=== PATIENT | male | born 1960 | race Caucasian/White ===

== ENCOUNTER 2016-10-09 11:36 | Day surgery (SDC) | payer BC ==
--- NOTE | ~2016-10-09 | EGD ---
EGD REPORT [facility] [address] [address] NAME: ALFONZO HARP : 62 STATUS : REG [facility]#: [id number] AGE: 56 ADM/REG DATE : 10/09/16 MR#: [id number] REPORT SERV DATE: 10/09/16 DICTATED BY: BENNY SILVERMAN DATE: 10/09/16 REPORT STATUS : Draft TRANSCRIBED BY: [facility] DATE: 10/09/16 Endoscopy Center Patient Name: Alfonzo Harp Date of : 1960 Attending MD: BENNY SILVERMAN MD Procedure Date No Time: 10/09/2016 Procedure: Upper GI endoscopy Indications: Reynaga's esophagus Medicines: Propofol total dose 595 mg IV Complications: No immediate complications. Procedure: Pre-Anesthesia Assessment: - ASA Grade Assessment: II - A patient with mild systemic disease. After obtaining informed consent, the endoscope was passed under direct vision. Throughout the procedure, the patient's blood pressure, pulse, and oxygen saturations were monitored continuously. The GIF H190 [id number] was introduced through the mouth, and advanced to the second part of duodenum. The upper GI endoscopy was accomplished without difficulty. The patient tolerated the procedure well. Findings: The duodenal bulb and 2nd part of the duodenum were normal. Circumferential radiofrequency ablation of Reynaga's esophagus was performed, using the Halo 360 catheter and balloon-based endoscopic ablation system. With the endoscope in place, the position and extent of the Reynaga's mucosa and the anatomic landmarks from 35 to 28 cms were noted. irrigation Reynaga's Mucosa.with mucomyst Contents suctioned out from the stomach . A guidewire was passed down the biopsy channel of the endoscope and the endoscope was then withdrawn from the mouth leaving the guidewire in place. The shaft of a 33.7 mm sizing balloon catheter was passed transorally over the guidewire into the esophagus and positioned at 28 cms. The balloon was automatically inflated with the energy generator and the inner diameter measurement of the esophagus first sizing Measurement (mm)] was obtained. This measurement step was repeated in 4 cms moving distally 38 cmsThen pu the the guidewire into the esophagus. The endoscope was introduced in a [id number] manner with the ablation catheter. The balloon ablation catheter was positioned under direct visualization so that the proximal edge of the electrode was 1 cms above the reynaga's mucosa. The balloon was automatically inflated and energy was applied . The balloon electrode was moved 3 cm distally, so that the proximal edge of the electrode was aligned with the distal edge of the ablation zone. The process of balloon inflation and ablation was repeated until the top of the gastric folds was EGD REPORT [address] [place]. [address] NAME: LOYD,ALVIN TRUONG : 62 STATUS : REG [facility] [place] PAT#: [id number] AGE: 56 ADM/REG DATE : 10/09/16 MR#: [id number] REPORT SERV DATE: 10/09/16 DICTATED BY: BENNY SILVERMAN DATE: 10/09/16 REPORT STATUS : Draft TRANSCRIBED BY: [employer] DATE: 10/09/16 reached. The ablation catheter and guidewire were removed and the balloon was cleaned. The ablation zone was then cleaned of overlying coagulative debris using irrigation and suction via the endoscope and a cleaning cap. The guidewire was reinserted and then the ablation catheter was reintroduced into the esophagus over the wire. The ablation catheter was positioned under direct visualization so that the proximal edge of the electrode was at the proximal edge of the ablation zone. Reinflation and a second round of ablation was performed to re-treat the Reynaga's epithelium already treated with the first round of ablation. The ablation catheter and guidewire were then removed. The areas of the esophagus where Reyngaa's mucosa had been ablated were then carefully examined with the endoscope. Post Treatment Findings]. The gastric body, anterior wall of the stomach, greater curvature of the stomach, lesser curvature of the stomach, gastric antrum and pylorus were normal. Showed at superficial tear at 28 cms 2 cms long two resolution clips although the bleeding had stopped There was a second tear about 1 cms below the ciricopharyngeus this was superficial and not bleedingath removed had a small tear at 2 Impression: - Normal duodenal bulb and 2nd part of the duodenum. Treated with radiofrequency ablation. - Normal gastric body, anterior wall of the stomach, greater curvature of the stomach, lesser curvature of the stomach, antrum and pylorus. Recommendation: - Discharge patient to home (ambulatory). - Full liquid diet for 2 days. - Use Protonix (pantoprazole) 40 mg PO BID daily. GI cocktail 100ml 1% lidocainr + 300ml Mylanta -- 30 ml po Q 4 hours Prn Lortab 7.5/325 mg Tid Prn 15 tabs given Procedure Code(s): --- Professional --- 78120, Esophagogastroduodenoscopy, flexible, transoral; with ablation of tumor(s), polyp(s), or other lesion(s) (includes pre- and post-dilation and guide wire passage, when performed) Diagnosis Code(s): --- Professional --- K22.70, Reynaga's esophagus without dysplasia CPT copyright 2013 [employer]. All rights reserved. The codes documented in this report are preliminary and upon hot worker review may EGD REPORT [address] [place]. [address] NAME: ALFONZO HARP : 62 STATUS : REG [facility] [place] PAT#: [id number] AGE: 56 ADM/REG DATE : 10/09/16 MR#: [id number] REPORT SERV DATE: 10/09/16 DICTATED BY: BENNY SILVERMAN DATE: 10/09/16 REPORT STATUS : Draft TRANSCRIBED BY: [employer] DATE: 10/09/16 be revised to meet current compliance requirements. Benny Silverman MD BENNY SILVERMAN MD 10/09/2016 2:14 PM This report has been signed electronically. Number of Addenda: 0 Note Initiated On: 10/09/2016 1:18 PM Scope Withdrawal Time 0 hours 0 minutes 0 seconds [address] [id number]
[~2016-10-09 11:36] MED LIST: PROTONIX20 MG PO; ZANTAC150 MG PO
[2016-11-10] MEDS ORDERED: PROTONIX PO (15:47)
== END 2016-10-09 23:59 | disposition home or self-care (01) ==
LOC: DMU 11:36
PROVIDERS: Internal Medicine Gastroenterology
PROC: 0D558ZZ Destruction of Esophagus, Via Natural or Artificial Opening Endoscopic (ICD-10-PCS; principal; 2016-10-09 13:00)
DX: K22.70 Barrett's esophagus without dysplasia (principal); K21.9 Gastro-esophageal reflux disease without esophagitis; Z79.899 Other long term (current) drug therapy; Z98.890 Other specified postprocedural states
CPT/HCPCS: A9270-GY; C1725

== ENCOUNTER 2016-11-20 11:09 | Day surgery (SDC) | payer BC ==
--- NOTE | ~2016-11-20 | EGD ---
EGD REPORT [facility] [address] [address] NAME: ALFONZO HARP : 62 STATUS : REG [facility]#: [id number] AGE: 56 ADM/REG DATE : 11/20/16 MR#: [id number] REPORT SERV DATE: 11/20/16 DICTATED BY: BENNY SILVERMAN DATE: 11/20/16 REPORT STATUS : Draft [facility]ANSCRIBED BY: [facility] DATE: 11/20/16 Endoscopy Center Patient Name: Alfonzo Harp Date of : 1960 Attending MD: BENNY SILVERMAN MD Procedure Date No Time: 11/20/2016 Procedure: Upper GI endoscopy Indications: Hernandez's esophagus Medicines: Propofol total dose 500 mg IV Complications: No immediate complications. Procedure: Pre-Anesthesia Assessment: - ASA Grade Assessment: II - A patient with mild systemic disease. After obtaining informed consent, the endoscope was passed under direct vision. Throughout the procedure, the patient's blood pressure, pulse, and oxygen saturations were monitored continuously. The GIF H190 [id number] was introduced through the mouth, and advanced to the second part of duodenum. The upper GI endoscopy was accomplished with ease. The patient tolerated the procedure well. Findings: The ampulla, duodenal bulb and 2nd part of the duodenum were normal. The gastric fundus, gastric body, anterior wall of the stomach, greater curvature of the stomach, lesser curvature of the stomach and gastric antrum were normal. A 2 cm hiatus hernia was present. The esophagus and gastroesophageal junction were examined with white light. 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 Three tongues of salmon-colored mucosa were present at 38 cm. The maximum longitudinal extent of these esophageal mucosal changes was 8 cm in length. Circumferential radiofrequency ablation of Hernandez's esophagus was performed, using the [employer] [place] 360 catheter and balloon-based endoscopic ablation system. With the endoscope in place, the position and extent of the Hernandez's mucosa and the anatomic landmarks were noted. Esophageal contents were suctioned. A guidewire was passed down the biopsy channel of the endoscope and the endoscope was then withdrawn from the mouth leaving the guidewire in place. The shaft of a 33.7 mm sizing balloon catheter was lubricated with K-Y jelly and passed transorally over the guidewire into the esophagus and positioned 28 cm from the incisors. The balloon was automatically inflated with the energy generator and the inner diameter EGD REPORT [address] [address] NAME: [address] TRUONG : 62 STATUS : REG [facility]#: [id number] AGE: 56 ADM/REG DATE : 11/20/16 MR#: [id number] REPORT SERV DATE: 11/20/16 DICTATED BY: BENNY SILVERMAN DATE: 11/20/16 REPORT STATUS : Draft TRANSCRIBED BY: [employer] DATE: 11/20/16 measurement of the esophagus of 20 mm was obtained. This measurement step was repeated in 4 cm increments moving distally. The sizing balloon catheter was withdrawn. An appropriately sized radiofrequency ablation balloon catheter was then selected and passed transorally over the guidewire into the esophagus. The endoscope was introduced in a zyrb-ya-[id number] manner with the ablation catheter. The balloon ablation catheter was positioned under direct visualization so that the proximal edge of the electrode was at 28 cm from the incisors. The balloon was automatically inflated and energy was applied at 10 J/cm2. The balloon electrode was moved 3 cm distally, so that the proximal edge of the electrode was aligned with the distal edge of the ablation zone. The process of balloon inflation and ablation was repeated until the top of the gastric folds was reached. The ablation catheter and guidewire were removed and the balloon was cleaned. The ablation zone was then cleaned of overlying coagulative debris using irrigation and suction via the endoscope and a cleaning cap. The guidewire was reinserted and then the ablation catheter was reintroduced into the esophagus over the wire. The ablation catheter was positioned under direct visualization so that the proximal edge of the electrode was at the proximal edge of the ablation zone. Reinflation and a second round of ablation was performed with the application of 10 J/cm2 to re-treat the Hernandez's epithelium already treated with the first round of ablation. The ablation catheter and guidewire were then removed. The areas of the esophagus where Hernandez's mucosa had been ablated were then carefully examined with the endoscope. Whitish changes of ablated mucosa were present. The total number of energy applications for all mucosal sites treated was 2. There was a moderate amount of untreated Hernandez's esophagus present. Impression: - Normal ampulla, duodenal bulb and 2nd part of the duodenum. - Normal gastric fundus, gastric body, anterior wall of the stomach, greater curvature of the stomach, lesser curvature of the stomach and antrum. - Hiatus hernia. 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 Treated with radiofrequency ablation. Recommendation: - Discharge patient to home (ambulatory). - Regular diet daily. - Continue present medications. Pantoprazole 40 mg po bid x 30 days Gicocktail 30 ml po tid x 7 days Lortab 7.5/325 1 tab tid Prn 12 tabs given - Return to GI clinic in 2 weeks. Procedure Code(s): --- Professional --- EGD REPORT [place] [address] [address] NAME: ALFONZO HARP : 62 [place]US : [place] [facility] [place]#: [id number] AGE: 56 ADM/REG DATE : 11/20/16 MR#: [id number] REPORT SERV DATE: 11/20/16 DICTATED BY: BENNY SILVERMAN DATE: 11/20/16 REPORT STATUS : Draft TRANSCRIBED BY: [employer] DATE: 11/20/16 [id number], Esophagogastroduodenoscopy, flexible, transoral; with ablation of tumor(s), polyp(s), or other lesion(s) (includes pre- and post-dilation and guide wire passage, when performed) Diagnosis Code(s): --- Professional --- K22.70, Hernandez's esophagus without dysplasia K44.9, Diaphragmatic hernia without obstruction or gangrene CPT copyright 2013 [employer]. All rights reserved. The codes documented in this report are preliminary and upon inspector tester sorter review may be revised to meet current compliance requirements. Benny Silverman MD BENNY SILVERMAN MD 11/20/2016 2:39 PM This report has been signed electronically. Number of Addenda: 0 Note Initiated On: 11/20/2016 10:17 AM Scope Withdrawal Time 0 hours 0 minutes 0 seconds [address] [id number]
[~2016-11-20 11:09] MED LIST changes: +PROTONIX PO
== END 2016-11-20 23:59 | disposition home health service (06) ==
LOC: DMU 11:09
PROVIDERS: Internal Medicine Gastroenterology
PROC: 0D558ZZ Destruction of Esophagus, Via Natural or Artificial Opening Endoscopic (ICD-10-PCS; principal; 2016-11-20 12:30)
DX: K22.70 Barrett's esophagus without dysplasia (principal); K44.9 Diaphragmatic hernia without obstruction or gangrene; K21.9 Gastro-esophageal reflux disease without esophagitis; Z79.899 Other long term (current) drug therapy